=== PATIENT | female | born 1935 | race Caucasian/White ===

== ENCOUNTER 2021-09-06 01:15 | Day surgery (SDC) | payer MEDICARE, SELFPAY ==
[2021-08-30 11:48] VITALS: BMI 37.5
--- NOTE | 2021-08-30 12:05 | PC.NURSE ---
Report to the Outpatient Waiting Room, entrance under the green pavilion located off [facility], at time ___12:00PM____ on date _09/06/21 . OR Time: __2:00PM . - You and your visitor will be asked a series of questions to screen for COVID 19 for your protection. - A mask is required within the hospital. - Only one visitor is allowed at this time. Patient visitors will be guided where to wait when not with patient. Preoperative COVID Testing Requirements: No COVID Test needed if: (proof is required; if not received patient will have Rapid Test prior to entry) - Patient has received COVID Vaccine at least 14 days prior to procedure date or - Patient has positive COVID test result within last 90 days of surgery date. COVID Test needed if above criteria is not met If not COVID vaccinated a COVID test must be conducted within 72 hours of surgery and patient is asked to isolate self from time of testing until procedure. You will go to the [facility] for your COVID testing. The [facility] Testing site is located at the corner of [address] from [facility]. You will only be called if COVID results are positive and your surgeon may reschedule your elective surgery date. Patients may have clear liquids (water, carbonated beverages, clear teas, apple juice) until 3 hours prior to surgery with a maximum of 20 ounces. - No food from midnight until time of surgery - Infants may have breast milk until 4 hours before surgery, formula 6 hours prior to surgery. - Children will be allowed to drink immediately following surgery. If applicable, please bring a bottle or sippy cup to assist with drinking. Juice, water, soda, and popsicles are readily available. For infants on formula, please bring formula the day of surgery. Pacifiers are allowed. Take the following medications with a SIP of water the morning of surgery: __CLONIDINE, HYDROCODONE, LIDOCAINE PATCH PRN Medications to discontinue per physician ALL VITAMINS/SUPPLEMENTS 3 DAYS PRE-OP Date to take last dose 09/02/21 Please no make-up, nail irish, hairspray, perfume, deodorant, or body powder the day of surgery. No jewelry (including any body piercings) or valuables the day of surgery, leave them at home. Please take a shower or bath the night before, or the morning of, surgery with an antibacterial soap. Wear comfortable, loose fitting clothing. Children are encouraged to wear pajamas. - Jewelry must be removed prior to entering the operating room. Rings and piercings that are not removed may be cut off. - The hospital will not accept responsibility for valuables. - Please leave all valuables, including medications, at home the day of surgery. If you are going home after surgery, a licensed concrete truck driver must drive you home. - NO public transportation without another adult. - We recommend that an adult stay with you for 24 hours following discharge. - We also recommend that you do not drive, make important decision, drink alcoholic beverages, or take any drugs that were not prescribed by your health care provider for at least 24 hours after your discharge time. For Pediatric surgeries, we recommend two adults accompany the child home (only one inside the building at this time). Follow any additional instructions given to you from your surgeon. Telephone instructions given to ____PATIENT and asked if any additional questions and then verbalized understanding. Patient advised to call surgeon office or pre surgery nurse liaison [phone] if any additional questions.
--- NOTE | 2021-09-03 16:12 | PM.IMHP ---
H&P: HPI History of Present Illness Date/Time: 09/03/21 16:12 86-year-old female admitted for hysteroscopy/dilatation and curettage secondary to postmenopausal. Patient Pap smear recently. She had some vaginal bleeding and endometrial thickness was noted be 4mm thick. Risks and benefits reviewed in great detail. She had all questions answered and asked to proceed Chief Complaint: Postmenopausal bleeding Review of Systems Review of Systems: All systems reviewed & are unremarkable except as noted in HPI and below PMFSH Social History Social History Smoking packs per day: 1 Smoking cigarettes per day: 20.0 Years smoked: 30 Smoking pack-years: 30.00 Smoking status: Former smoker Tobacco type: cigarettes Smoking end date: 03/21/80 Substance use: never Living arrangements: alone Spiritual care concerns: No Meds Home Medications and Allergies Home Medications Medication Instructions Recorded Confirmed Type aspirin [Adult Low Dose Aspirin] 81 mg PO DAILY 08/30/21 08/30/21 History cholecalciferol (vitamin D3) 1,250 mcg PO WEEKLY 08/30/21 08/30/21 History clonidine HCl 0.1 mg PO BID 08/30/21 08/30/21 History hydrocodone-acetaminophen 2 tablet PO Q4-6H PRN 08/30/21 08/30/21 History lidocaine 1 patch TOPICAL DAILY PRN 08/30/21 08/30/21 History lovastatin 40 mg PO QAM 08/30/21 08/30/21 History meloxicam 15 mg PO QAM 08/30/21 08/30/21 History nitroglycerin 0.4 mg SUBLINGUAL USEASDIRECTD 08/30/21 08/30/21 History potassium 99 mg PO DAILY 08/30/21 08/30/21 History ropinirole 0.5 mg PO HS 08/30/21 08/30/21 History zolpidem 5 mg PO HS 08/30/21 08/30/21 History Allergies Allergy/AdvReac Type Severity Reaction Status Date / Time amoxicillin [From Augmentin] Allergy Unknown Verified 08/30/21 15:45 clavulanic acid Allergy Unknown Verified 08/30/21 15:45 [From Augmentin] clindamycin Allergy Unknown Verified 08/30/21 15:45 levofloxacin [From Levaquin] Allergy Unknown Verified 08/30/21 15:45 Exam Const: General: no acute distress Eyes: General: appearance normal, both eyes and all related structures Neck: Neck: supple and no JVD Thyroid: thyroid normal Resp: Effort & Inspection: normal respiratory effort Auscultation: clear to auscultation bilaterally Cardio: Rate: regular rate Rhythm: regular rhythm GI: Inspection: non-distended GI Palp: Yes Soft to palpation, No Tenderness to palpation present (GI) and No Guarding due to palpation present (GI) Auscultation: normal bowel sounds : External Female Exam: normal external appearance Speculum Exam - Vagina: normal appearance of the vagina Speculum Exam - Cervix: normal appearance of the cervix Bimanual exam- vagina & uterus: non-tender Bimanual Exam- Adnexa, other: No adnexal tenderness Skin: General skin exam: no rashes or lesions noted Extrem: General: normal to inspection and no edema Psych: Mental Status: mental status grossly normal Affect: normal affect Assessment and Plan Additional Plan Impression: Postmenopausal bleeding Plan: Hysteroscopy/dilatation and curettage
--- NOTE | 2021-09-06 07:00 | WPDHPUPDATE1 ---
History and Physical Update Update Date/Time: 09/06/21 07:00 History and Physical has been reviewed, including an updated exam of the patient. There are NO changes in the patient's condition. Risks, benefits, and alternatives have been discussed and questions answered. Patient agrees to proceed with procedure.
[2021-09-06 12:17] VITALS: BP 173/99; PULSE 85; RESP 16; TEMP 36.7; O2SAT 99
--- NOTE | 2021-09-06 12:35 | P.PNAN_ITS ---
Anes - Initial Pre Proc Eval Procedure: Operation Date: 09/06/21 14:00 Proposed Procedures p Hysteroscopy, Dilation and Curettage - Rakesh Delgado MD Date/Time: 09/06/21 12:35 Surgeon: Rakesh Delgado MD Pre Op Diagnosis: post menopausal bleeding Patient Data Age: 86 Gender: F Height: 1.6 m Weight: 96 kg Allergies Allergy/AdvReac Type Severity Reaction Status Date / Time amoxicillin [From Augmentin] Allergy Unknown Verified 08/30/21 15:45 clavulanic acid Allergy Unknown Verified 08/30/21 15:45 [From Augmentin] clindamycin Allergy Unknown Verified 08/30/21 15:45 levofloxacin [From Levaquin] Allergy Unknown Verified 08/30/21 15:45 Home Medications Medication Instructions Recorded Confirmed Type aspirin [Adult Low Dose Aspirin] 81 mg PO DAILY 08/30/21 08/30/21 History cholecalciferol (vitamin D3) 1,250 mcg PO WEEKLY 08/30/21 08/30/21 History clonidine HCl 0.1 mg PO BID 08/30/21 08/30/21 History hydrocodone-acetaminophen 2 tablet PO Q4-6H PRN 08/30/21 08/30/21 History lidocaine 1 patch TOPICAL DAILY PRN 08/30/21 08/30/21 History lovastatin 40 mg PO QAM 08/30/21 08/30/21 History meloxicam 15 mg PO QAM 08/30/21 08/30/21 History nitroglycerin 0.4 mg SUBLINGUAL USEASDIRECTD 08/30/21 08/30/21 History potassium 99 mg PO DAILY 08/30/21 08/30/21 History ropinirole 0.5 mg PO HS 08/30/21 08/30/21 History zolpidem 5 mg PO HS 08/30/21 08/30/21 History hydrocodone-acetaminophen 1 tablet PO Q4H PRN #14 tablet 09/06/21 Rx Patient hx anesthesia problems: none Family hx anesthesia problems: none Results Review: All pre-operative results and documents have been reviewed as part of the pre-operative evaluation. [facility] Past Medical History Medical History Anxiety Arthritis Chronic pain syndrome COPD (chronic obstructive pulmonary disease) Depression Hyperlipidemia Social History Social History Smoking packs per day: 1 Smoking cigarettes per day: 20.0 Years smoked: 30 Smoking pack-years: 30.00 Smoking status: Former smoker Tobacco type: cigarettes Smoking end date: 03/21/80 Substance use: never Living arrangements: alone Spiritual care concerns: No Anes - Eval Final PreProcedure Day of Procedure 09/06/21 12:35 Patient weight: obese Heart: regular rate and rhythm Lungs: decreased breath sounds Airway: Mallampati scale class II Neurological: alert and oriented Last oral intake: >/= 8 hours ASA classification: III Emergent: no Anesthetic plan: proceed Anesthesia type and monitoring: general GIVS and standard monitoring Results Review: All pre-operative results and documents have been reviewed as part of the pre-operative evaluation. Informed Consent: The patient's anesthetic plan and its attendant risks and benefits were discussed with the patient/family/POA. Questions were solicited and answers provided to the satisfaction of the patient/family/POA.
[2021-09-06] MEDS: LACTATED RINGERS 1,000 ML 30 ML IV CONT (12:53)
--- NOTE | 2021-09-06 13:21 | W.PM.PROC2 ---
Procedure Note - Detailed Date of Procedure 09/06/21 Pre-op Diagnosis post menopausal bleeding Post-op Diagnosis same Procedure Performed Hysteroscopy/dilatation curettage Surgeon Rakesh Delgado MD Anesthesia MAC and local Indications This is a an 86-year-old female with thickened endometrium on ultrasound and postmenopausal bleeding Findings Prolapsed uterus was found. Uterus sounded to 8cm. Very thin benign appearing endometrial tissue was seen. Description of Procedure Patient was prepped draped normal sterile fashion placed dorsal lithotomy position. Excellent IV sedation weighted speculum was placed in posterior fornix vagina. The anterior lip of the cervix grasped with single-tooth tenaculum and 2.5cc of % xylocaine anesthesia placed at 2, 4, 8, 10:00 a.m. of the cervix. Uterus sounded 8cm. Serial dilatation with fragmented dilators performed. This was followed by passes the 5. Visualizing hysteroscope using normal saline as visualizing medium. Schley atrophic endometrium was noted as expected for of this age. Each fallopian tube os could be seen and no abnormalities were seen. The uterus was scraped over the entire 360? revealing. Little tissue was expected. She tolerated the procedure well and went to recovery in satisfactory condition. All sponge, needle, instrument counts were correct. There were no immediate complications Estimated Blood Loss 1 Drains No Packing No Pathology yes Complications No immediate complications Condition stable Disposition PACU
[2021-09-06 13:25] VITALS: BP 170/73; PULSE 87; RESP 16; O2SAT 97
[2021-09-06] MEDS: fentaNYL CITRATE INJ (*CRX) 100 MCG/2 ML VIAL 25 MCG IV PUSH ×5 (13:29→14:12)
[2021-09-06 13:55] VITALS: BP 189/80; PULSE 91; RESP 16; O2SAT 98
[2021-09-06 14:25] VITALS: BP 173/76; PULSE 86; RESP 16; O2SAT 97
[2021-09-06] MEDS: oxyCODONE HCL (*CRX) 5 MG TAB IR PO (14:58)
[2021-09-06 15:05] VITALS: BP 167/94; PULSE 91; RESP 16
== END 2021-09-06 15:30 | disposition home or self-care (01) ==
PROVIDERS: PCP Family Medicine; Visit Provider Obstetrics & Gynecology
PROC: 0U5B8ZZ Destruction of Endometrium, Via Natural or Artificial Opening Endoscopic (ICD-10-PCS; CPT 58563; principal; 2021-09-06 14:00)
DX: N95.0 Postmenopausal bleeding (principal); N85.8 Other specified noninflammatory disorders of uterus; J44.9 Chronic obstructive pulmonary disease, unspecified; G89.4 Chronic pain syndrome; E78.5 Hyperlipidemia, unspecified; F41.8 Other specified anxiety disorders; Z79.82 Long term (current) use of aspirin; Z79.891 Long term (current) use of opiate analgesic; Z87.891 Personal history of nicotine dependence; E66.9 Obesity, unspecified; Z68.37 Body mass index [BMI] 37.0-37.9, adult
CPT/HCPCS: 58558; 88305; A9270; J2704; J3010; J7030; J7120